=== PATIENT | male | born 1945 | race Caucasian/White ===

== ENCOUNTER → 2020-08-26 | Outpatient (CLI) | payer OTHER ==
[~2020-08-26] MED LIST: ALL DAY ALLERGY10 M2 PO; ANORO ELLIPTA1 EACH INH; AZITHROMYCIN250 MG PO; CEFUROXIME500 MG PO; CELEBREX100 MG PO; CELECOXIB100 MG PO; CETIRIZINE HCL10 MG PO; CLONAZEPAM1 MG PO; DOXAZOSIN MESYLA1 MG PO; FLOMAX 0.4 MG0.4 MG PO; FLUOXETINE HCL40 MG PO; FLUOXETINE HCL60 MG PO; GABAPENTIN800 MG PO; HYDROCODON-ACE1 EAC6 PO; IPRAT-ALBUT 0.5-3 ML INH; IPRAT-ALBUT 0.5-3 ML NEB; MEDROL DOSEPAK 24 MG PO; NEBULIZER UNIT INH; NEURONTIN800 MG PO; NICOTINE PATCH1 EAC2 TD; OMNICEF 300 MG300 MG PO; PREDNISONE10 M1 PO; ROBITUSSIN DM UD5 ML PO
== END ==
LOC: EXRD 14:42
DX: J44.1 Chronic obstructive pulmonary disease with (acute) exacerbation (principal)
CPT/HCPCS: 71046

== ENCOUNTER 2020-09-12 11:09 | Inpatient (IN) | payer OTHER ==
[~2020-09-12] VITALS: Ht 182.9 cm; Wt 89.8 kg
[~2020-09-12 11:09] MED LIST changes: -ANORO ELLIPTA1 EACH INH; -CEFUROXIME500 MG PO; -CELECOXIB100 MG PO; -CETIRIZINE HCL10 MG PO; -FLUOXETINE HCL60 MG PO; -GABAPENTIN800 MG PO; -IPRAT-ALBUT 0.5-3 ML INH; -PREDNISONE10 M1 PO
[2020-09-12 13:06] LABS: HEMOGLOBIN 15.3 gm/dl (14.0-17.5); RED BLOOD COUNT 4.91 M/UL (4.20-5.50); WHITE BLOOD COUNT 8.8 K/UL (4.5-11.0)
--- NOTE | 2020-09-12 20:25 | NUR ---
REPORT CALLED TO PCU NURSE PT TRANSPORTED TO ROOM [id number].
[2020-09-13 03:46] LABS: HEMOGLOBIN 13.5 gm/dl (14.0-17.5); WHITE BLOOD COUNT 7.8 K/UL (4.5-11.0)
[2020-09-13 04:02] LABS: RED BLOOD COUNT 4.39 M/UL (4.20-5.50)
[2020-09-13 04:06] LABS: BUN/CREATININE RATIO 17 (0-10)
[2020-09-14 02:54] LABS: HEMOGLOBIN 13.7 gm/dl (14.0-17.5); RED BLOOD COUNT 4.41 M/UL (4.20-5.50)
[2020-09-14 02:56] LABS: WHITE BLOOD COUNT 11.7 K/UL (4.5-11.0)
[2020-09-14 03:17] LABS: BUN/CREATININE RATIO 23 (0-10)
[2020-09-14] MEDS ORDERED: GABAPENTIN800 MG PO (14:24)
[2020-09-14] MEDS ORDERED: CLONAZEPAM1 MG PO (14:24)
[2020-09-14] MEDS ORDERED: HYDROCODON-ACE1 EAC6 PO (14:25)
[2020-09-14] MEDS ORDERED: CETIRIZINE HCL10 MG PO ×2 (14:28→14:53)
[2020-09-14] MEDS ORDERED: FLUOXETINE HCL60 MG PO (14:29)
[2020-09-14] MEDS ORDERED: DOXAZOSIN MESYLA1 MG PO ×2 (14:31→14:54)
[2020-09-14] MEDS ORDERED: FLOMAX 0.4 MG0.4 MG PO (14:56)
[2020-09-14] MEDS ORDERED: ANORO ELLIPTA1 EACH INH (14:57)
[2020-09-14] MEDS ORDERED: IPRAT-ALBUT 0.5-3 ML INH (14:58)
[2020-09-14] MEDS ORDERED: CELECOXIB100 MG PO (14:59)
[2020-09-15 04:31] LABS: HEMOGLOBIN 13.2 gm/dl (14.0-17.5); RED BLOOD COUNT 4.27 M/UL (4.20-5.50); WHITE BLOOD COUNT 12.2 K/UL (4.5-11.0)
[2020-09-15 05:22] LABS: BUN/CREATININE RATIO 32 (0-10)
[2020-09-16] MEDS ORDERED: CEFUROXIME500 MG PO (12:36)
[2020-09-16] MEDS ORDERED: PREDNISONE10 M1 PO (12:37)
== END 2020-09-16 09:40 | disposition home or self-care (01) | DRG 193 ==
LOC: ER1 11:09 → PROG CARE 14:05 → CDU 14:05 → MED SURG 4 16:51 → PROG CARE 21:08
PROVIDERS: Physician Assistant Medical; ADMIT Internal Medicine
DX: J18.9 Pneumonia, unspecified organism (principal); J96.21 Acute and chronic respiratory failure with hypoxia; Z20.822 Contact with and (suspected) exposure to COVID-19; J96.22 Acute and chronic respiratory failure with hypercapnia; J44.1 Chronic obstructive pulmonary disease with (acute) exacerbation; J44.0 Chronic obstructive pulmonary disease with (acute) lower respiratory infection; I10 Essential (primary) hypertension; G89.4 Chronic pain syndrome; F17.210 Nicotine dependence, cigarettes, uncomplicated; N40.0 Benign prostatic hyperplasia without lower urinary tract symptoms; F41.9 Anxiety disorder, unspecified; F32.9 Major depressive disorder, single episode, unspecified; Z83.3 Family history of diabetes mellitus
CPT/HCPCS: 36415; 36600; 71045; 71046; 80048; 80053; 82550; 82553; 82803; 83605; 83735; 83874; 83880; 84439; 84443; 84484; 85025; 85027; 87040; 93005; 94640; 94660; 94760; 99285; J0456; J0696; J1650; J2920; J2930; J3475; J7030; U0002

== ENCOUNTER 2021-05-24 10:35 | Inpatient (IN) | payer OTHER ==
[~2021-05-24] VITALS: Ht 182.9 cm; Wt 91.6 kg
[~2021-05-24 10:35] MED LIST changes: +ANORO ELLIPTA1 EACH INH; +CEFUROXIME500 MG PO; +CELECOXIB100 MG PO; +CETIRIZINE HCL10 MG PO; +FLUOXETINE HCL60 MG PO; +GABAPENTIN800 MG PO; +IPRAT-ALBUT 0.5-3 ML INH; +PREDNISONE10 M1 PO
[2021-05-24 11:30] LABS: HEMOGLOBIN 11.8 gm/dl (14.0-17.5); RED BLOOD COUNT 4.25 M/UL (4.20-5.50); WHITE BLOOD COUNT 9.1 K/UL (4.5-11.0)
[2021-05-24 11:46] LABS: BUN/CREATININE RATIO 13 (0-10)
[2021-05-24] MEDS ORDERED: PROVENTIL HFA6.7 GM INH (15:46)
[2021-05-24] MEDS ORDERED: PROZAC20 MG PO (15:48)
[2021-05-25] MEDS ORDERED: XIFAXAN550 MG PO (05:43)
[2021-05-25 06:02] LABS: HEMOGLOBIN 12.3 gm/dl (14.0-17.5); RED BLOOD COUNT 4.29 M/UL (4.20-5.50); WHITE BLOOD COUNT 9.8 K/UL (4.5-11.0)
[2021-05-25 06:45] LABS: BUN/CREATININE RATIO 20 (0-10)
[2021-05-26 05:53] LABS: HEMOGLOBIN 11.1 gm/dl (14.0-17.5); RED BLOOD COUNT 3.98 M/UL (4.20-5.50)
[2021-05-26 05:56] LABS: WHITE BLOOD COUNT 12.6 K/UL (4.5-11.0)
[2021-05-26 06:13] LABS: BUN/CREATININE RATIO 19 (0-10)
[2021-05-27 06:29] LABS: HEMOGLOBIN 11.9 gm/dl (14.0-17.5); RED BLOOD COUNT 4.26 M/UL (4.20-5.50); WHITE BLOOD COUNT 11.5 K/UL (4.5-11.0)
[2021-05-27 06:51] LABS: BUN/CREATININE RATIO 28 (0-10)
[2021-05-27] MEDS ORDERED: STIOLTO RESPIMAT4 GM INH (09:23)
[2021-05-27] MEDS ORDERED: GABAPENTIN800 MG PO (09:23)
[2021-05-27] MEDS ORDERED: MEDROL DOSEPAK 24 MG PO (09:25)
[2021-05-27] MEDS ORDERED: AMOX TR-K CLV1 EAC4 PO (09:25)
== END 2021-05-27 11:40 | disposition home health service (06) | DRG 196 ==
LOC: ER1 10:35 → MED SURG 4 12:40 → CDU 12:40 → MED SURG 4 13:53
PROVIDERS: Family Medicine; ADMIT Internal Medicine
DX: J84.10 Pulmonary fibrosis, unspecified (principal); J96.21 Acute and chronic respiratory failure with hypoxia; G92.8 Other toxic encephalopathy; R65.11 Systemic inflammatory response syndrome (SIRS) of non-infectious origin with acute organ dysfunction; J44.1 Chronic obstructive pulmonary disease with (acute) exacerbation; J44.0 Chronic obstructive pulmonary disease with (acute) lower respiratory infection; F41.9 Anxiety disorder, unspecified; R19.7 Diarrhea, unspecified; N40.0 Benign prostatic hyperplasia without lower urinary tract symptoms; I10 Essential (primary) hypertension; G47.33 Obstructive sleep apnea (adult) (pediatric); Z20.822 Contact with and (suspected) exposure to COVID-19; G89.4 Chronic pain syndrome; M19.90 Unspecified osteoarthritis, unspecified site; F32.A Depression, unspecified; Z99.81 Dependence on supplemental oxygen; Z87.891 Personal history of nicotine dependence; Z79.899 Other long term (current) drug therapy; Z98.890 Other specified postprocedural states
CPT/HCPCS: 0240U; 36415; 36600; 71045; 80053; 81001; 82140; 82550; 82553; 82803; 83605; 83735; 83880; 84484; 85025; 85027; 85610; 87040; 93005; 94640; 94664; 94760; 96374; 96375; 97116-GP-CQ; 97161; 97530-GP-CQ; 99285; J1650; J2543; J2920; J2930